=== PATIENT | male | born 1995 | race Caucasian/White ===

== ENCOUNTER 2018-01-13 18:41 | Emergency (ER) | payer BC ==
--- OUTSIDE RECORDS SUMMARY | 2018-01-13 18:43 | XMS REPORT | Clinical Summary ---
:1995 Author Organization [facility] Address [address] [place] [address] Care Team Providers Name Role Phone Boris Small MD Primary Care Provider Allergies No Known Allergies Current Medications Not on file Active Problems Not on file Encounters Date Type Specialty Care Team Description 11/24/2017 Emergency Emergency Medicine Srini Quinones MD Chest pain in adult (Primary Dx); Shortness of breath; Dizziness after 01/12/2017 Social History Tobacco Use Types Packs/Day Years Used Date Former Smoker 5 Smokeless Tobacco: Never Used Alcohol Use Drinks/Week oz/Week Comments Yes social Sex Assigned at Date Recorded Not on file Last Filed Vital Signs Vital Sign Reading Time Taken Blood Pressure 115/66 11/24/2017 4:51 AM CDT Pulse 82 11/24/2017 4:51 AM CDT Temperature 37.1 C (98.7 F) 11/24/2017 12:05 AM CDT Respiratory Rate 19 11/24/2017 4:51 AM CDT Oxygen Saturation 94% 11/24/2017 4:51 AM CDT Inhaled Oxygen Concentration - - Weight 185 kg (407 lb) 11/24/2017 12:05 AM CDT Height 182.9 cm (6') 11/24/2017 12:05 AM CDT Body Mass Index 55.2 11/24/2017 12:05 AM CDT Plan of Treatment Health Maintenance Due Date Last Done Comments INFLUENZA VACCINE 02/05/2018 Procedures Procedure Name Priority Date/Time Associated Comments Diagnosis TROPONIN Timed 11/24/2017 3:57 Results for this AM CDT procedure are in the results section. TROPONIN Timed 11/24/2017 1:48 Results for this AM CDT procedure are in the results section. XR CHEST 1 VW PORTABLE STAT 11/24/2017 1:35 Results for this AM CDT procedure are in the results section. ESTIMATED GFR STAT 11/24/2017 12:45 Results for this AM CDT procedure are in the results section. D-DIMER STAT 11/24/2017 12:45 Results for this AM CDT procedure are in the results section. TROPONIN STAT 11/24/2017 12:45 Results for this AM CDT procedure are in the results section. HC COMPLETE BLD COUNT STAT 11/24/2017 12:45 Results for this W/AUTO DIFF AM CDT procedure are in the results section. COMPREHENSIVE STAT 11/24/2017 12:45 Results for this METABOLIC PANEL AM CDT procedure are in the results section. ECG 12-LEAD STAT 11/24/2017 12:14 Results for this AM CDT procedure are in the results section. after 01/12/2017 Results Troponin (11/24/2017 3:57 AM)Only the most recent of3 resultswithin the time period is included. Troponin <0.006 0.000 - 0.300 ng/mL [facility] DEPARTMENT OF Comment: PATHOLOGY AND GENOMIC 0.30 - 1.49 ng/mlMay indicate increased risk of acute MEDICINE coronary syndrome. >=1.5 ng/mlConsistent with acute myocardial infarction. The diagnostic value of a single normal or non-diagnostic result is questionable.Serial samples at 2-6 hour intervals are required to rule out acute myocardial injury. Specimen Plasma specimen Performing Organization Address City/State/Zipcode Phone Number [facility] [place] [id number], [address] [place] [address] PATHOLOGY AND GENOMIC MEDICINE XR Chest 1 Vw Portable (11/24/2017 1:35 AM) Narrative Performed At Examination:XR CHEST 1 VW PORTABLE RADIANT Clinical History:Chest Pain Comparison: None. Technique: Single frontal view of the chest is obtained. Findings: The lungs are free of infiltrate. The heart size is normal. No pleural effusion is seen. Impression: No active cardiopulmonary disease identified. [facility]-[id number] Procedure Note Interface, Radiology Results Incoming - 11/24/2017 1:58 AM CDT Examination: XR CHEST 1 VW PORTABLE Clinical History: Chest Pain Comparison: None. Technique: Single frontal view of the chest is obtained. Findings: The lungs are free of infiltrate. The heart size is normal. No pleural effusion is seen. Impression: No active cardiopulmonary disease identified. [facility]-[id number] Performing Organization Address City/State/Zipcode Phone Number [address] [place] [address] Estimated GFR (11/24/2017 12:45 AM) GFR Non Af Amer >90 mL/min/1.73 m2 [facility] DEPARTMENT OF PATHOLOGY AND GENOMIC MEDICINE GFR Af Amer >90 mL/min/1.73 m2 [facility] DEPARTMENT OF Comment: PATHOLOGY AND GENOMIC Chronic kidney disease: <60 mL/min/1.73m2 MEDICINE Kidney failure: <15 mL/min/1.73m2 The estimated GFR is calculated from the IDMS-traceable Modification of Diet in Renal Disease Equation. The accuracy of the calculation is poor when the creatinine is normal. Calculated values >90 mL/min/1.73m2 are not reported. This equation has not been validated in children (<18 years), women, the elderly (>70 years), or ethnic groups other than Caucasians and Americans. Specimen Plasma specimen Performing Organization Address [facility] Phone Number [facility] [place] [place] [address], [address] [place], [place] [id number] [place] [address] D-dimer (11/24/2017 12:45 AM) D-dimer <0.27 0.00 - 0.40 ug/mL FEU [facility] DEPARTMENT OF Comment: PATHOLOGY AND GENOMIC Units are ug/ml Fibrinogen Equivalent Unit. MEDICINE When combined with low clinical probability, D-dimer results of less than 0.5 ug/ml FEU have a good negativepredictive value in excluding PE or DVT. For D-dimer results greater than 0.5ug/ml FEU further testing is indicated if PE or DVT is suspectedclinically. Elevated D-dimer results have been reported in DVT, PE, and DIC cases and may indicate the presence of a clot. D-dimer results may be elevated due to old age, , inflammatory diseases, trauma, post-operative states, sepsis, and malignancies. Specimen Blood Performing Organization Address [facility] Phone Number [facility] [place] [address], [address] [place] [address] PATHOLOGY AND [facility] CBC with platelet and differential (11/24/2017 12:45 AM) WBC 10.16 4.50 - 11.00 k/uL [facility] DEPARTMENT OF PATHOLOGY AND GENOMIC MEDICINE RBC 4.95 4.40 - 6.00 m/uL [facility] DEPARTMENT OF PATHOLOGY AND GENOMIC MEDICINE HGB 13.8 (L) 14.0 - 18.0 g/dL [facility] DEPARTMENT OF PATHOLOGY AND GENOMIC MEDICINE HCT 42.7 41.0 - 51.0 % [facility] DEPARTMENT OF PATHOLOGY AND GENOMIC MEDICINE MCV 86.3 82.0 - 100.0 fL [facility] DEPARTMENT OF PATHOLOGY AND GENOMIC MEDICINE MCH 27.9 27.0 - 34.0 pg [facility] DEPARTMENT OF PATHOLOGY AND GENOMIC MEDICINE MCHC 32.3 31.0 - 37.0 g/dL [facility] DEPARTMENT OF PATHOLOGY AND GENOMIC MEDICINE RDW - SD 38.9 37.0 - 55.0 fL [facility] DEPARTMENT OF PATHOLOGY AND GENOMIC MEDICINE MPV 10.2 8.8 - 13.2 fL [facility] DEPARTMENT OF PATHOLOGY AND GENOMIC MEDICINE Platelet count 236 150 - 400 k/uL [facility] DEPARTMENT OF PATHOLOGY AND GENOMIC MEDICINE Nucleated RBC 0.00 /100 WBC [facility] DEPARTMENT OF PATHOLOGY AND GENOMIC MEDICINE Neutrophils 57.9 39.0 - 69.0 % [facility] DEPARTMENT OF PATHOLOGY AND GENOMIC MEDICINE Lymphocytes 28.5 25.0 - 45.0 % [facility] DEPARTMENT OF PATHOLOGY AND GENOMIC MEDICINE Monocytes 9.9 0.0 - 10.0 % [facility] DEPARTMENT OF PATHOLOGY AND GENOMIC MEDICINE Eosinophils 2.6 0.0 - 5.0 % [facility] DEPARTMENT OF PATHOLOGY AND GENOMIC MEDICINE Basophils 0.5 0.0 - 1.0 % [facility] DEPARTMENT OF PATHOLOGY AND GENOMIC MEDICINE Immature granulocytes 0.6Comment: 0.0 - 1.0 % [facility] DEPARTMENT OF "Immature PATHOLOGY AND GENOMIC granulocytes" MEDICINE (promyelocytes, myelocytes, metamyelocytes) Specimen Blood Performing Organization Address City/State/Zipcode Phone Number [facility] [place] [place] [address], [address] [place] [address] PATHOLOGY AND GENOMIC MEDICINE Comprehensive metabolic panel (11/24/2017 12:45 AM) Sodium 138 135 - 148 mEq/L [facility] DEPARTMENT OF PATHOLOGY AND GENOMIC MEDICINE Potassium 4.2 3.5 - 5.0 mEq/L [facility] DEPARTMENT OF PATHOLOGY AND GENOMIC MEDICINE Chloride 102 98 - 112 mEq/L [facility] DEPARTMENT OF PATHOLOGY AND GENOMIC MEDICINE CO2 26 24 - 31 mEq/L [facility] DEPARTMENT OF PATHOLOGY AND GENOMIC MEDICINE Anion gap 10 7 - 15 mEq/L [facility] DEPARTMENT OF PATHOLOGY AND GENOMIC MEDICINE BUN 17 6 - 20 mg/dL [facility] DEPARTMENT OF PATHOLOGY AND GENOMIC MEDICINE Creatinine 0.9 0.7 - 1.2 mg/dL [facility] DEPARTMENT OF PATHOLOGY AND GENOMIC MEDICINE Glucose 94 65 - 99 mg/dL [facility] DEPARTMENT OF PATHOLOGY AND GENOMIC MEDICINE Calcium 9.0 8.3 - 10.2 mg/dL [facility] DEPARTMENT OF PATHOLOGY AND GENOMIC MEDICINE Protein 6.9 6.3 - 8.3 g/dL [facility] DEPARTMENT OF Comment: PATHOLOGY AND GENOMIC 4.6-7.0 g/dL MEDICINE 1 week 4.4-7.6 g/dL 7 months-1year5.1-7.3 g/dL 1-2 years5.6-7.5 g/dL >3 years6.0-8.0 g/dL 18-150 6.3-8.3 g/dL Albumin 3.4 (L) 3.5 - 5.0 g/dL [facility] DEPARTMENT OF PATHOLOGY AND GENOMIC MEDICINE A/G ratio 1.0 0.7 - 3.8 [facility] DEPARTMENT OF PATHOLOGY AND GENOMIC MEDICINE Alkaline phosphatase 105 40 - 129 U/L [facility] DEPARTMENT OF PATHOLOGY AND GENOMIC MEDICINE AST 29 10 - 50 U/L [facility] DEPARTMENT OF PATHOLOGY AND GENOMIC MEDICINE ALT 58 (H) 5 - 50 U/L [facility] DEPARTMENT OF PATHOLOGY AND GENOMIC MEDICINE Total bilirubin 0.4 0.0 - 1.2 mg/dL [facility] DEPARTMENT OF PATHOLOGY AND GENOMIC MEDICINE Specimen Plasma specimen Performing Organization Address City/[facility] Phone Number [facility] [place] [address], [address] [place] [address] PATHOLOGY AND GENOMIC MEDICINE ECG 12 lead (11/24/2017 12:14 AM) Ventricular rate 80 [facility] Atrial rate 80 [facility] NE interval 146 [facility] QRSD interval 98 [facility] QT interval 366 [facility] QTC interval 422 [facility] P axis 1 32 [facility] QRS axis 1 7 [facility] T wave axis 41 [facility] EKG impression Normal sinus rhythm-Normal [facility] MUSE ECG-- Performing Organization Address City/State/Zipcode Phone Number [facility] MUSE [address] [place] [address] after 01/12/2017 Insurance Payer Benefit Plan / Group Subscriber ID Type Phone Address BCBS BCBS CHOICE PPO/F[employer]ERAL EMPL PPO xxxxxxxxxxxx PPO Home: [id number] [phone] [address]
[2018-01-13] MEDS ORDERED: NA CHLORIDE 0.9% 1,000 ML ONE ×2 (20:24→22:11)
--- NOTE | 2018-01-13 20:39 | RAD REPORT ---
EXAM DESCRIPTION: RAD - Chest Single View - 01/13/2018 8:30 pm CLINICAL HISTORY: ABDOMINAL DISTENTION Chest pain. COMPARISON: Chest Pa And Lat (2 Views) dated 03/22/2016; CHEST PA AND LAT 2 VIEW dated 10/11/2013; CHES T PA AND LAT 2 VIEW dated 07/16/2012 FINDINGS: Portable technique limits examination quality. The lungs are grossly clear. The heart is normal in size. No displaced fractures. IMPRESSION: No acute intrathoracic process suspected.
[2018-01-13 20:42] LABS: Absolute Lymphocytes (CBC) 2.5 K/uL (0.7-4.9); Absolute Monocytes 1.1 K/uL (0.1-1.3); Absolute Neutrophil 8.2 K/uL (1.8-8.0); Basophils % 0.5 % (0-1.3); Eosinophils % 1.7 % (0-4.4); Hematocrit 44.5 % (39.6-49.0); Lymphocytes % 21.1 % (15.3-44.8); MCH 28.5 pg (27.0-35.0); MCV 86.1 fL (80-100); MPV 8.7 fL (7.6-11.3); Monocytes % 8.9 % (3.3-12.3); RBC Red Blood Cell Count 5.17 M/uL (4.33-5.43)
[2018-01-13 20:46] LABS: Protime INR 0.92
[2018-01-13 20:56] LABS: Urine Blood NEGATIVE (NEG); Urine Glucose NEGATIVE (NEG); Urine Protein NEGATIVE (NEG); Urine Specific Gravity 1.025 (1.005-1.030)
[2018-01-13 21:27] LABS: ALT/SGPT 65 U/L (12-78); AST/SGOT 24 U/L (15-37); Albumin 3.4 g/dL (3.4-5.0); Alkaline Phosphatase 138 U/L (45-117); BUN Blood Urea Nitrogen 17 mg/dL (7-18); Bicarbonate 26 mmol/L (21-32); Bilirubin Direct < 0.1 mg/dL (0-0.2); Bilirubin Total 0.2 mg/dL (0.2-1.0); CKMB Creatine Kinase MB < 1.0 ng/mL (0.3-3.6); Creatine Phosphokinase 140 U/L (39-308); Glucose Level 99 mg/dL (74-106); Lipase 95 U/L (73-393); Magnesium 2.3 mg/dL (1.8-2.4); NT PRO-BNP 8 pg/mL (<125); Protein, Total 7.4 g/dL (6.4-8.2); Sodium Level 142 mmol/L (136-145)
--- NOTE | 2018-01-13 23:47 | ER ---
Nurse's Notes [facility] Name: Da Mckeon Age: 22 yrs Sex: Male : 1995 Arrival Date: 01/13/2018 Time: 18:44 Bed 17 Private MD: Out, [facility] Diagnosis: Abdominal tenderness;Vomiting;Diarrhea, unspecified;Constipation Presentation: 01/13 18:47 Presenting complaint: Patient states: upper abd pain radiating to lower abd that began aa5 . Pt also reports N/V since Saturday and diarrhea since yesterday. Transition of care: patient was not received from another setting of care. Onset of symptoms was January 2018. Risk Assessment: Do you want to hurt yourself or someone else? Patient reports no desire to harm self or others. Initial Sepsis Screen: Does the patient meet any 2 criteria? No. Patient's initial sepsis screen is negative. Does the patient have a suspected source of infection? No. Patient's initial sepsis screen is negative. Care prior to arrival: None. 18:47 Method Of Arrival: Ambulatory aa5 18:47 Acuity: TASHA 3 aa5 Historical: - Allergies: 18:49 No Known Allergies; aa5 - PMHx: 18:49 vertigo; Depression; Anxiety; Schizophrenia; Migraines; aa5 - PSHx: 18:48 Knee surgery; I\T\D; aa5 - Immunization history:: Adult Immunizations unknown. - Social history:: Smoking status: Patient/guardian denies using tobacco. - Ebola Screening: : No symptoms or risks identified at this time. - Family history:: not pertinent. - Hospitalizations: : No recent hospitalization is reported. Screenin:00 Abuse screen: Denies threats or abuse. Nutritional screening: No deficits noted. fc Tuberculosis screening: No symptoms or risk factors identified. Fall Risk None identified. Assessment: 19:52 General: Appears in no apparent distress. uncomfortable, obese, well groomed, Behavior bs1 is calm, cooperative, appropriate for age. Pain: Complains of pain in generalized abdomen Pain does not radiate. Pain: Pain currently is 8 out of 10 on a pain scale. Neuro:. Neuro: Level of Consciousness is awake, alert, obeys commands, Oriented to person, place, time, situation, Appropriate for age. Cardiovascular: Denies chest pain, shortness of breath, Heart tones S1 S2 present Capillary refill < 3 seconds Patient's skin is warm and dry. Respiratory: Airway is patent Trachea midline Respiratory effort is even, unlabored, Respiratory pattern is regular, symmetrical, Breath sounds are clear bilaterally. GI: Abdomen is round non-distended, Bowel sounds hypoactive in left lower quadrant and right lower quadrant and left upper quadrant and right upper quadrant Reports lower abdominal pain, upper abdominal pain, diarrhea, nausea, vomiting. : No signs and/or symptoms were reported regarding the genitourinary system. EENT: No signs and/or symptoms were reported regarding the EENT system. Derm: Skin is intact. Musculoskeletal: Circulation, motion, and sensation intact. Capillary refill < 3 seconds, Range of motion: intact in all extremities. 21:00 Reassessment: No changes from previously documented assessment. Patient and/or family bs1 updated on plan of care and expected duration. Pain level reassessed. Patient is alert, oriented x 3, equal unlabored respirations, skin warm/dry/pink. Pending CT scan. 22:30 Reassessment: Patient appears in no apparent distress at this time. Patient and/or bs1 family updated on plan of care and expected duration. Pain level reassessed. Patient is alert, oriented x 3, equal unlabored respirations, skin warm/dry/pink. 23:45 Reassessment: No changes from previously documented assessment. Patient and/or family bs1 updated on plan of care and expected duration. Pain level reassessed. Patient is alert, oriented x 3, equal unlabored respirations, skin warm/dry/pink. Patient states feeling better. Patient states symptoms have improved. 01/14 00:00 Reassessment: Dc instructions given to patient by Caren KATE, patient states bs1 understanding of POC. Vital Signs: 01/13 18:49 BP 156 / 94; Pulse 112; Resp 18 S; Temp 98.0(TE); Pulse Ox 96% on R/A; Weight 181.44 kg aa5 (R); Height 6 ft. 0 in. (182.88 cm) (R); Pain 9/10; 20:00 BP 134 / 71; Pulse 105; Resp 16 S; Pulse Ox 95% on R/A; bs1 21:00 BP 131 / 73; Pulse 93; Resp 17 S; Pulse Ox 97% on R/A; bs1 22:00 BP 94 / 56; Pulse 87; Resp 17 S; Pulse Ox 96% on R/A; bs1 23:00 BP 129 / 90; Pulse 112; Resp 18 S; Pulse Ox 97% on R/A; bs1 01/14 00:04 BP 126 / 74; Pulse 85; Resp 20; Temp 98.7(O); Pulse Ox 98% on R/A; Pain 3/10; fc 01/13 18:49 Body Mass Index 54.25 (181.44 kg, 182.88 cm) aa5 01/14 00:04 Claudia (FACES) fc ED Course: 01/13 18:44 Patient arrived in ED. sb2 18:45 Out, of Town is Private Physician. sb2 18:48 Triage completed. aa5 18:48 Arm band placed on. aa5 19:20 Lj Vega MD is Attending Physician. [facility] 19:33 Pari Spicer, ALIN is Primary Nurse. bs1 20:18 Inserted saline lock: 22 gauge in left forearm, using aseptic technique. Blood bs1 collected. 20:30 XRAY Chest (1 view) In Process Unspecified. EDMS 20:30 X-ray completed. Portable x-ray completed in exam room. Patient tolerated procedure ml well. 22:04 Patient has correct armband on for positive identification. Bed in low position. Call bs1 light in reach. Side rails up X 1. 22:26 CT Abd/Pelvis - W/Contrast In Process Unspecified. EDMS 22:29 CT completed. Patient tolerated procedure well. Patient moved back from CT. kw1 01/14 00:06 No provider procedures requiring assistance completed. IV discontinued, intact, fc bleeding controlled, No redness/swelling at site. Pressure dressing applied. Administered Medications: 01/13 20:24 Drug: NS 0.9% 1000 ml Route: IV; Rate: 1 bolus; Site: left forearm; bs1 22:11 Drug: NS 0.9% 1000 ml Route: IV; Rate: 1 bolus; Site: left forearm; bs1 Outcome: 23:46 Discharge ordered by . [place] 01/14 00:05 Discharged to home ambulatory, with family. fc Condition: good Discharge instructions given to patient, friend, Instructed on discharge instructions, follow up and referral plans. no drinking with medication, no driving heavy equipment, medication usage, Demonstrated understanding of instructions, follow-up care, medications, Prescriptions given X 3. 00:06 Patient left the ED. fc Signatures: Dispatcher [employer] EDLj Gale MD MD cha Chretien, Felicia, RN RN Tania Roberson Audri RN RN aa5 Glenys Spicer kw1 Pari Spicer RN RN bs1 Liat Gomez2
--- NOTE | 2018-01-13 23:47 | EDPHYS ---
Physician Documentation [facility] Name: Da Mckeon Age: 22 yrs Sex: Male : 1995 Arrival Date: 01/13/2018 Time: 18:44 Bed 17 Private MD: Out, [facility] ED Physician Lj Vega HPI: 01/13 19:52 This 22 yrs old Male presents to ER via Ambulatory with complaints of cheyenne Abdominal Pain, Vomiting/Diarrhea. 19:52 The patient presents to the emergency department with nausea, vomiting, diarrhea, cheyenne abdominal pain, of the right upper quadrant, left upper quadrant, right lower quadrant and left lower quadrant. Onset: The symptoms/episode began/occurred 2 day(s) ago. Possible causes: unknown. The symptoms are aggravated by nothing. The symptoms are alleviated by nothing. Associated signs and symptoms: The patient has no apparent associated signs or symptoms. Severity of symptoms: At their worst the symptoms were mild in the emergency department the symptoms are unchanged. The patient has not experienced similar symptoms in the past. Historical: - Allergies: 18:49 No Known Allergies; aa5 - PMHx: 18:49 vertigo; Depression; Anxiety; Schizophrenia; Migraines; aa5 - PSHx: 18:48 Knee surgery; I\T\D; aa5 - Immunization history:: Adult Immunizations unknown. - Social history:: Smoking status: Patient/guardian denies using tobacco. - Ebola Screening: : No symptoms or risks identified at this time. - Family history:: not pertinent. - Hospitalizations: : No recent hospitalization is reported. ROS: 19:52 Constitutional: Negative for fever, chills, and weight loss, Eyes: Negative for injury, [place] pain, redness, and discharge, ENT: Negative for injury, pain, and discharge, Neck: Negative for injury, pain, and swelling, Respiratory: Negative for shortness of breath, cough, wheezing, and pleuritic chest pain, Back: Negative for injury and pain, : Negative for injury, bleeding, discharge, and swelling, MS/Extremity: Negative for injury and deformity, Skin: Negative for injury, rash, and discoloration, Neuro: Negative for headache, weakness, numbness, tingling, and seizure. 19:52 Cardiovascular: Positive for chest pain. 19:52 Abdomen/GI: Positive for abdominal pain, nausea and vomiting, nausea, vomiting, and diarrhea, diarrhea, of the suprapubic area, right upper quadrant, left upper quadrant, right lower quadrant and left lower quadrant. Exam: 19:52 Constitutional: This is a well developed, well nourished patient who is awake, alert, cheyenne and in no acute distress. Head/Face: Normocephalic, atraumatic. Eyes: Pupils equal round and reactive to light, extra-ocular motions intact. Lids and lashes normal. Conjunctiva and sclera are non-icteric and not injected. Cornea within normal limits. Periorbital areas with no swelling, redness, or edema. ENT: Nares patent. No nasal discharge, no septal abnormalities noted. Tympanic membranes are normal and external auditory canals are clear. Oropharynx with no redness, swelling, or masses, exudates, or evidence of obstruction, uvula midline. Mucous membranes moist. Neck: Trachea midline, no thyromegaly or masses palpated, and no cervical lymphadenopathy. Supple, full range of motion without nuchal rigidity, or vertebral point tenderness. No Meningismus. Chest/axilla: Normal chest wall appearance and motion. Nontender with no deformity. No lesions are appreciated. Cardiovascular: Regular rate and rhythm with a normal S1 and S2. No gallops, murmurs, or rubs. Normal PMI, no JVD. No pulse deficits. Respiratory: Lungs have equal breath sounds bilaterally, clear to auscultation and percussion. No rales, rhonchi or wheezes noted. No increased work of breathing, no retractions or nasal flaring. Back: No spinal tenderness. No costovertebral tenderness. Full range of motion. Male : Normal genitalia with no discharge or lesions. Skin: Warm, dry with normal turgor. Normal color with no rashes, no lesions, and no evidence of cellulitis. MS/ Extremity: Pulses equal, no cyanosis. Neurovascular intact. Full, normal range of motion. 19:52 Abdomen/GI: Inspection: abdomen appears normal, Bowel sounds: normal, Palpation: mild abdominal tenderness, in the umbilical area, right upper quadrant, left upper quadrant and abdomen diffusely. 21:38 Musculoskeletal/extremity: DVT Exam: No signs of deep vein thrombosis. no pain, no cheyenne swelling, no tenderness, negative Homans' sign noted on exam, no appreciated bluish discoloration, no erythema, no increased warmth. Vital Signs: 18:49 BP 156 / 94; Pulse 112; Resp 18 S; Temp 98.0(TE); Pulse Ox 96% on R/A; Weight 181.44 kg aa5 (R); Height 6 ft. 0 in. (182.88 cm) (R); Pain 9/10; 20:00 BP 134 / 71; Pulse 105; Resp 16 S; Pulse Ox 95% on R/A; bs1 21:00 BP 131 / 73; Pulse 93; Resp 17 S; Pulse Ox 97% on R/A; bs1 22:00 BP 94 / 56; Pulse 87; Resp 17 S; Pulse Ox 96% on R/A; bs1 23:00 BP 129 / 90; Pulse 112; Resp 18 S; Pulse Ox 97% on R/A; bs1 07 00:04 BP 126 / 74; Pulse 85; Resp 20; Temp 98.7(O); Pulse Ox 98% on R/A; Pain 3/10; fc 01/13 18:49 Body Mass Index 54.25 (181.44 kg, 182.88 cm) aa5 01/14 00:04 Claudia (FACES) fc MDM: 01/13 19:20 Patient medically screened. [facility] 19:55 Data reviewed: vital signs, nurses notes, lab test result(s), EKG, radiologic studies, [facility] CT scan, plain films. 01/13 19:52 Order name: Basic Metabolic Panel; Complete Time: 21:37 [facility] 01/13 19:52 Order name: CBC with Diff; Complete Time: 21:37 [facility] 01/13 19:52 Order name: Ckmb; Complete Time: 21:37 [facility] 01/13 19:52 Order name: CPK; Complete Time: 21:37 [facility] 01/13 19:52 Order name: LFT's; Complete Time: 21:37 [facility] 01/13 19:52 Order name: Magnesium; Complete Time: 21:37 [facility] 01/13 19:52 Order name: NT PRO-BNP; Complete Time: 21:37 [facility] 01/13 19:52 Order name: PT-INR; Complete Time: 21:37 [facility] 01/13 19:52 Order name: Ptt, Activated; Complete Time: 21:37 [facility] 01/13 19:52 Order name: Troponin (emerg Dept Use Only); Complete Time: 21:37 [facility] 01/13 19:52 Order name: Lipase; Complete Time: 21:37 [facility] 01/13 19:52 Order name: Urine Culture [facility] 01/13 19:52 Order name: XRAY Chest (1 view); Complete Time: 21:37 [facility] 01/13 19:52 Order name: EKG; Complete Time: 19:53 [facility] 01/13 19:52 Order name: Cardiac monitoring; Complete Time: 22:07 [facility] 01/13 19:52 Order name: EKG - Nurse/Tech; Complete Time: 22:06 [facility] 01/13 19:52 Order name: IV Saline Lock; Complete Time: 20:27 [facility] 01/13 19:52 Order name: Labs collected and sent; Complete Time: 20:27 [facility] 01/13 19:52 Order name: O2 Per Protocol; Complete Time: 20:27 [facility] 01/13 19:52 Order name: O2 Sat Monitoring; Complete Time: 20:27 [facility] 01/13 19:52 Order name: Urine Dipstick-Ancillary (obtain specimen); Complete Time: 22:07 [facility] 01/13 19:52 Order name: CT Abd/Pelvis - W/Contrast [facility] 01/13 20:54 Order name: Urine Dipstick--Ancillary (enter results) rg2 01/13 20:55 Order name: Urine Dipstick-Ancillary; Complete Time: 21:37 EDMS Administered Medications: 20:24 Drug: NS 0.9% 1000 ml Route: IV; Rate: 1 bolus; Site: left forearm; bs1 22:11 Drug: NS 0.9% 1000 ml Route: IV; Rate: 1 bolus; Site: left forearm; bs1 Disposition: 01/13/18 23:46 Discharged to Home. Impression: Abdominal tenderness, Vomiting, Diarrhea, unspecified, Constipation. - Condition is Stable. - Discharge Instructions: Abdominal Pain, Adult, Food Choices to Help Relieve Diarrhea, Adult, Constipation, Adult, Diarrhea, Nausea and Vomiting, Nausea and Vomiting, [id number], Abdominal Pain, Adult, [id number]-[id number], Diarrhea, Vynt-fq-Cegl. - Prescriptions for Bentyl 20 mg Oral Tablet - take 1 tablet by ORAL route every 6 hours As needed; 20 tablet. Pepcid 20 mg Oral Tablet - take 1 tablet by ORAL route every 12 hours for 10 days; 20 tablet. Zofran 4 mg Oral Tablet - take 1 tablet by ORAL route every 12 hours As needed; 20 tablet. - Medication Reconciliation Form, Thank You Letter, Antibiotic Education, Prescription Opioid Use form. - Follow up: Private Physician; When: 2 - 3 days; Reason: Recheck today's complaints, Continuance of care, Re-evaluation by your physician. - Problem is new. - Symptoms have improved. Signatures: Dispatcher [employer] [facility] Lj Vega MD MD cha Chretien, Felicia, RN RN fc Inna Estes, RN RN aa5 Pari Spicer RN RN bs1 Corrections: (The following items were deleted from the chart) 22:07 19:53 Occult Blood+PA.LAB.BRZ ordered. [facility] 01/14 00:06 01/13 23:46 01/13/2018 23:46 Discharged to Home. Impression: Abdominal tenderness; fc Vomiting; Diarrhea, unspecified; Constipation. Condition is Stable. Discharge Instructions: Abdominal Pain, Adult, Food Choices to Help Relieve Diarrhea, Adult, Diarrhea, Nausea and Vomiting, Nausea and Vomiting, [id number]-[id number], Abdominal Pain, Adult, Zcgo-td-[id number], Diarrhea, Gvdw-mw-Tisg. Prescriptions for Bentyl 20 mg Oral Tablet - take 1 tablet by ORAL route every 6 hours As needed; 20 tablet, Pepcid 20 mg Oral Tablet - take 1 tablet by ORAL route every 12 hours for 10 days; 20 tablet, Zofran 4 mg Oral Tablet - take 1 tablet by ORAL route every 12 hours As needed; 20 tablet. and Forms are Medication Reconciliation Form, Thank You Letter, Antibiotic Education, Prescription Opioid Use. Follow up: Private Physician; When: 2 - 3 days; Reason: Recheck today's complaints, Continuance of care, Re-evaluation by your physician. Problem is new. Symptoms have improved. [place]
[2018-01-14 00:29] VITALS: BP 126/74; TEMP 98.7; O2SAT 98
--- NOTE | 2018-01-14 08:15 | RAD REPORT ---
EXAM DESCRIPTION: CTAbdomen Pelvis W Contrast - 01/13/2018 10:26 pm CLINICAL HISTORY: Abdominal pain. ABD PAIN COMPARISON: No comparisons TECHNIQUE: Biphasic CT imaging of the abdomen and pelvis was performed with 100 ml non-ionic IV cont rast. All CT scans are performed using dose optimization technique as appropriate and may include automated exposure control or mA/KV adjustment according to patient size. FINDINGS: The lung bases are clear. The liver, spleen, pancreas, adrenal glands and kidneys are within normal limits. No bowel obstruction, free air, free fluid or abscess. Moderate fecal retention in the colon. The gabriella endix is normal. No evidence of significant lymphadenopathy. No suspicious bony findings. IMPRESSION: No acute intra-abdominal or pelvic finding.
--- NOTE | 2018-01-14 21:39 | EKG ---
Test Date: 2018-01-13 Test Time: 20:31:32 [employer] Operator Helper: MENDEL MEASUREMENT RESULTS: Intervals: Rate: 103 LA: 136 QRSD: 84 QT: 336 QTc: 440 [place]: P: 39 LA: 136 QRS: 25 T: 46 INTERPRETIVE STATEMENTS: Sinus tachycardia Otherwise normal ECG Compared to ECG 07/16/2012 17:41:50 Sinus rhythm no longer present Electronically Signed On 01-14-18 21:38:48 CDT by Bayron Reyes
== END 2018-01-14 00:06 | disposition home or self-care (01) ==
LOC: ER 18:41
DX: K59.00 Constipation, unspecified (principal); R11.10 Vomiting, unspecified; R19.7 Diarrhea, unspecified
CPT/HCPCS: 36415; 71045; 74177; 80048; 80076; 81003; 82550; 82553; 83690; 83735; 83880; 84484; 85025; 85610; 85730; 87086; 87088; 93005; 99284; J7030; Q9967